=== PATIENT | female | born 1985 | race Caucasian/White ===

== ENCOUNTER 2018-07-20 18:04 | Emergency (ER) | payer BC ==
--- NOTE | 2018-07-20 19:13 | EDM.PDOC ---
ED HPI GENERAL MEDICAL PROBLEM - General Chief Complaint: Chest Pain Stated Complaint: CHEST PAIN AND SOB Time Seen by Provider: 07/20/18 18:43 Source of Information: Reports: Patient, RN Notes Reviewed History Limitations: Reports: No Limitations - History of Present Illness INITIAL COMMENTS - FREE TEXT/NARRATIVE: Patient is a 32-year-old female who presents to the ED today for the evaluation of chest pain or shortness of breath. She notes this started at around noon today, she started having some chest pain that radiated to her left arm and she felt like she needed to pass out. The patient notes a previous history of A heartbeat and anxiety. She states she does not have much for energy at this time and she feels sleepy. She notes that the pain was mostly in to her left shoulder with a dull radiation to her left arm. She states that there was mild feelings of someone sitting on her chest. She states that it is somewhat hard to breathe as well, or to take a deep breath in. She has not felt this type of pain before ever. She notes some mild nausea but no vomiting or diarrhea, shortness of breath, chest discomfort, and fatigue. She has not taken anything for pain medications for this. Middle Chest Pain Score (Numeric/FACES): 7 - Related Data Allergies Allergy/AdvReac Type Severity Reaction Status Date / Time nitrofurantoin Allergy Hives Verified 02/14/18 11:10 [From Macrobid] Home Meds: Home Meds . 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: Reports: Endometriosis, Neurological History: Reports: Other (See Below) Other Neuro History: lumbar puncture for headache Psychiatric History: Reports: Anxiety - Past Surgical History Cardiovascular Surgical History: Reports: Cardiac Ablation Social & Family History - Family History Family Medical History: Noncontributory - Tobacco Use Smoking Status *Q: Never Smoker - Caffeine Use Caffeine Use: Reports: Coffee, Soda, Tea - Recreational Drug Use Recreational Drug Use: No Other Recreational Drug Type: no drugs for years ED ROS GENERAL - Review of Systems Review Of Systems: See Below Constitutional: Reports: Fatigue. Denies: Fever, Chills, Diaphoresis HEENT: Reports: No Symptoms Respiratory: Reports: Shortness of Breath. Denies: Cough Cardiovascular: Reports: Chest Pain (chest discomfort). Denies: Lightheadedness Endocrine: Reports: No Symptoms GI/Abdominal: Reports: Nausea. Denies: Diarrhea, Vomiting : Reports: No Symptoms Musculoskeletal: Reports: Arm Pain (left arm) Skin: Reports: No Symptoms Neurological: Reports: No Symptoms Psychiatric: Reports: Anxiety Hematologic/Lymphatic: Reports: No Symptoms Immunologic: Reports: No Symptoms ED EXAM, GENERAL - Physical Exam Exam: See Below Exam Limited By: No Limitations General Appearance: Alert, WD/WN, No Apparent Distress Eye Exam: Bilateral Eye: EOMI, Normal Inspection, PERRL Nose: Normal Inspection Throat/Mouth: Normal Inspection, Normal Lips, Normal Teeth, Normal Gums, Normal Oropharynx, Normal Voice, No Airway Compromise Head: Atraumatic, Normocephalic Neck: Normal Inspection Respiratory/Chest: No Respiratory Distress, Lungs Clear, Normal Breath Sounds, No Accessory Muscle Use, Other (tenderness to bilateral chest pugh with palpation) Cardiovascular: Normal Peripheral Pulses, Regular Rate, Rhythm, No Edema, No Murmur GI/Abdominal: Normal Bowel Sounds, Soft, Non-Tender Back Exam: Normal Inspection Extremities: Normal Inspection, Non-Tender, Normal Capillary Refill Neurological: Alert, Oriented, Normal Cognition, No Motor/Sensory Deficits Psychiatric: Normal Affect, Normal Mood Skin Exam: Warm, Dry, Intact, Normal Color, No Rash EKG INTERPRETATION EKG Date: 07/20/18 Time: 18:22 Rhythm: NSR Rate (Beats/Min): 82 [place]: Normal P-Wave: Present QRS: Normal ST-T: Normal QT: Prolonged (borderline prolonged) Comparison: NA - No Prior EKG EKG Interpretation Comments: EKG reviewed by Dr. Esquivel, there is no acute changes at this time. Course - Vital Signs Last Recorded V/S: Last Vital Signs Temp 97.5 F 07/20/18 18:25 Pulse 67 07/20/18 18:25 Resp 14 07/20/18 18:25 BP 113/77 07/20/18 18:25 Pulse Ox 100 07/20/18 18:25 - Orders/Labs/Meds Orders: Active Orders 24 hr Category Date Time Status EKG Documentation Completion [RC] STAT Care 07/20/18 18:44 Ordered Chest 2V [CR] Stat Exams 04/05/19 18:44 Ordered Labs: Laboratory Tests 07/20/18 07/20/18 07/20/18 Range/Units 18:25 18:25 18:25 WBC 9.29 (3.98-10.04) K/mm3 RBC 4.86 (3.98-5.22) M/mm3 Hgb 14.3 (11.2-15.7) gm/L Hct 41.5 (34.1-44.9) % MCV 85.4 (79.4-94.8) fl MCH 29.4 (25.6-32.2) pg MCHC 34.5 (32.2-35.5) g/dl RDW Std Deviation 40.7 (36.4-46.3) fL Plt Count 195 (182-369) K/mm3 MPV 10.1 (9.4-12.3) fl Neutrophils % (Manual) 47 (40-60) % Band Neutrophils % 0 (0-10) % Lymphocytes % (Manual) 47 H (20-40) % Atypical Lymphs % 0 % Monocytes % (Manual) 4 (2-10) % Eosinophils % (Manual) 2 (0.7-5.8) % Basophils % (Manual) 0 L (0.1-1.2) Platelet Estimate Adequate RBC Morph Comment Normal D-Dimer, Quantitative 0.50 (0.19-0.50) mg/L Sodium 139 (136-145) mEq/L Potassium 3.1 L (3.5-5.1) mEq/L Chloride 103 (98-107) mEq/L Carbon Dioxide 23 (21-32) mEq/L Anion Gap 16.1 H (5-15) BUN 15 (7-18) mg/dL Creatinine 1.0 (0.55-1.02) mg/dL Est Cr Clr Drug Dosing 74.91 mL/min Estimated GFR (MDRD) > 60 (>60) mL/min BUN/Creatinine Ratio 15.0 (14-18) Glucose 98 (74-106) mg/dL Calcium 9.6 (8.5-10.1) mg/dL Total Bilirubin 0.5 (0.2-1.0) mg/dL AST 56 H (15-37) U/L ALT 66 H (14-59) U/L Alkaline Phosphatase 81 (46-116) U/L Troponin I < 0.017 (0.00-0.056) ng/mL Total Protein 7.9 (6.4-8.2) g/dl Albumin 4.2 (3.4-5.0) g/dl Globulin 3.7 gm/dL Albumin/Globulin Ratio 1.1 (1-2) - Re-Assessments/Exams Free Text/Narrative Re-Assessment/Exam: 07/20/18 19:14 Patient presents to the ED for evaluation of chest pain. I did order EKG, CBC, CMP, troponin, d-dimer, chest x-ray for further evaluation of her symptoms. She is tender with palpation to her bilateral chest wall which is somewhat suggestive of costochondritis in nature, this would explain the pain into her left arm as well. The patient was nauseous at time of initial presentation, however she has declined any medications for nausea this time. 07/20/18 20:31 Patient's labs have returned and do not demonstrate any acute abnormalities as to what would be causing her chest pain I did explain this to the patient and told her this may be due to a small anxiety attack. I recommended that she follow up with a primary care provider early next week for further evaluation of these symptoms. Departure - Departure Time of Disposition: 20:32 Disposition: Home, Self-Care 01 Condition: Fair Clinical Impression: Atypical chest pain - Discharge Information *PRESCRIPTION DRUG MONITORING PROGRAM REVIEWED*: No *COPY OF PRESCRIPTION DRUG MONITORING REPORT IN PATIENT OLIVIA: No Instructions: Chest Wall Pain, [id number], Nonspecific Chest Pain, Easy-to- Read Referrals: PCP,None [Primary Care Provider] - Forms: ED Department Discharge Additional Instructions: You have been evaluated in the ED tonight for your chest pain. Her EKG, and other labs did not demonstrate any acute abnormalities that would be causing her chest pain. This may be likely due to anxiety in nature. Recommend that you follow up with primary care provider of your choosing please call [phone] Monday as early as possible to set up an appointment with a provider. Please increase your fluid intake over the weekend, if you are experiencing increased nausea you may stick to a clear liquid diet and advance to bland as tolerated, this does include bananas, rice, applesauce, dry toast. Please return to the ED if your symptoms change or worsen. - My Orders Last 24 Hours: My Active Orders 07/20/18 18:44 EKG Documentation Completion [RC] STAT Chest 2V [CR] Stat - Assessment/Plan Last 24 Hours: My Active Orders 07/20/18 18:44 EKG Documentation Completion [RC] STAT Chest 2V [CR] Stat
--- NOTE | 2018-07-21 10:59 | CR ---
Chest: Two views of the chest were obtained. Comparison: Prior chest x-ray of 02/09/18. Heart size and mediastinum are normal. Lungs are clear. Old healed left clavicle fracture is noted. No acute osseous abnormality is appreciated. Impression: 1. Nothing acute is seen on two-view chest x-ray. Diagnostic code #2
== END 2018-07-20 20:43 | disposition home or self-care (01) ==
LOC: JD.ED 18:04
DX: R07.89 Other chest pain (principal); Z88.8 Allergy status to other drugs, medicaments and biological substances
CPT/HCPCS: 36415; 71046; 71046-26; 80053; 84484; 85007; 85027; 85379; 93005; 93010; 99285; 99285-25

== ENCOUNTER 2018-12-22 14:06 | Emergency (ER) | payer BC ==
--- NOTE | 2018-12-22 14:44 | EDM.PDOC ---
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 Patient reports 16 days ago she had intercourse with her and since then she has had spotting. She reports pain to the right side of her pelvis as well. She has been seen her internal medicine doctor, Dr. Mccollum. She had a CT and MRI of her pelvis as well as labs and a urine. No abnormal has been identified thus far. She did follow up with Dr. Montes and had a Pap done recently. She is supposed to see Dr. Montes again on for follow-up. She states that tonight she started her menstrual cycle. She has soaked through 2 pads in 2 hours. States this is bright red blood with clots. She reports feeling lightheaded, dizzy, nauseated and having headaches. She denies any syncope. She states that she is fatigued and has no energy. She is not on any medication at this time. Reports past medical history of endometriosis and interstitial cystitis. PCP is Dr. Mccollum. first officer and flight instructor is Dr. Montes. Right Abdominal Pain Score (Numeric/FACES): 5 - Related Data Allergies Allergy/AdvReac Type Severity Reaction Status Date / Time nitrofurantoin Allergy Hives Verified 12/22/18 14:15 [From Macrobid] Home Meds: Home Meds . 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: Reports: Endometriosis, Neurological History: Reports: Other (See Below) Other Neuro History: lumbar puncture for headache Psychiatric History: Reports: Anxiety - Past Surgical History Cardiovascular Surgical History: Reports: Cardiac Ablation Social & Family History - Family History Family Medical History: Noncontributory - Tobacco Use Smoking Status *Q: Never Smoker Second Hand Smoke Exposure: No - Caffeine Use Caffeine Use: Reports: Coffee - Recreational Drug Use Recreational Drug Use: No ED ROS GENERAL - Review of Systems Review Of Systems: See Below Constitutional: Reports: Weakness, Fatigue GI/Abdominal: Reports: Nausea. Denies: Vomiting : Reports: Pain (right sided pelvic) Neurological: Reports: Dizziness, Headache. Denies: Syncope ED EXAM, RENAL/ - Physical Exam Exam: See Below Exam Limited By: No Limitations General Appearance: Alert, WD/WN, No Apparent Distress Nose: Normal Inspection Throat/Mouth: Normal Inspection, Normal Lips, Normal Voice, No Airway Compromise Respiratory/Chest: No Respiratory Distress, Lungs Clear, Normal Breath Sounds Cardiovascular: Normal Peripheral Pulses, Regular Rate, Rhythm, No Murmur GI/Abdominal: Normal Bowel Sounds, Soft, Non-Tender (Female) Exam: Normal Speculum Exam, Vaginal Bleeding (heavy, not hemorrhaging) Neurological: Alert, Oriented, Normal Cognition Psychiatric: Normal Affect, Normal Mood Skin Exam: Warm, Dry, Normal Color Course - Vital Signs Last Recorded V/S: Last Vital Signs Temp 97.5 F 12/22/18 14:14 Pulse 84 12/22/18 14:14 Resp 14 12/22/18 14:14 BP 120/76 12/22/18 14:14 Pulse Ox 100 12/22/18 14:14 Orthostatic Blood Pressure [ 99/72 Standing] Orthostatic Blood Pressure [ 93/67 Supine] - Orders/Labs/Meds Orders: Active Orders 24 hr Category Date Time Status Orthostatic Vital Signs [RC] ASDIRECTED Care 12/22/18 14:31 Active Pelvic Exam, Set Up [RC] ASDIRECTED Care 12/22/18 14:43 Active Labs: Laboratory Tests 12/22/18 12/22/18 12/22/18 Range/Units 14:53 14:53 14:53 WBC 6.90 (3.98-10.04) K/mm3 RBC 4.59 (3.98-5.22) M/mm3 Hgb 13.2 (11.2-15.7) gm/L Hct 39.6 (34.1-44.9) % MCV 86.3 (79.4-94.8) fl MCH 28.8 (25.6-32.2) pg MCHC 33.3 (32.2-35.5) g/dl RDW Std Deviation 41.0 (36.4-46.3) fL Plt Count 221 (182-369) K/mm3 MPV 10.1 (9.4-12.3) fl Neut % (Auto) 68.5 (34.0-71.1) % Lymph % (Auto) 22.9 (19.3-51.7) % [place] % (Auto) 7.2 (4.7-12.5) % Eos % (Auto) 1.0 (0.7-5.8) Baso % (Auto) 0.3 (0.1-1.2) % Neut # (Auto) 4.72 (1.56-6.13) K/mm3 Lymph # (Auto) 1.58 (1.18-3.74) K/mm3 [place] # (Auto) 0.50 H (0.24-0.36) K/mm3 Eos # (Auto) 0.07 (0.04-0.36) K/mm3 Baso # (Auto) 0.02 (0.01-0.08) K/mm3 Sodium 139 (136-145) mEq/L Potassium 4.1 (3.5-5.1) mEq/L Chloride 106 (98-107) mEq/L Carbon Dioxide 27 (21-32) mEq/L Anion Gap 10.1 (5-15) BUN 12 (7-18) mg/dL Creatinine 0.8 (0.55-1.02) mg/dL Est Cr Clr Drug Dosing 92.76 mL/min Estimated GFR (MDRD) > 60 (>60) mL/min BUN/Creatinine Ratio 15.0 (14-18) Glucose 88 (74-106) mg/dL Calcium 8.9 (8.5-10.1) mg/dL Total Bilirubin 0.2 (0.2-1.0) mg/dL AST 22 (15-37) U/L ALT 30 (14-59) U/L Alkaline Phosphatase 67 (46-116) U/L Total Protein 7.5 (6.4-8.2) g/dl Albumin 3.6 (3.4-5.0) g/dl Globulin 3.9 gm/dL Albumin/Globulin Ratio 0.9 L (1-2) HCG, Qual Negative (NEGATIVE) Urine Color (Yellow) Urine Appearance (Clear) Urine pH (5.0-8.0) Ur Specific [place] (1.005-1.030) Urine Protein (Negative) Urine Glucose (UA) (Negative) Urine Ketones (Negative) Urine Occult Blood (Negative) Urine Nitrite (Negative) Urine Bilirubin (Negative) Urine Urobilinogen (0.2-1.0) Ur Leukocyte Esterase (Negative) Urine RBC (0-5) /hpf Urine WBC (0-5) /hpf Ur Epithelial Cells (0-5) /hpf Urine Bacteria (FEW) /hpf Urine Mucus (FEW) /hpf 12/22/18 Range/Units 15:05 WBC (3.98-10.04) K/mm3 RBC (3.98-5.22) M/mm3 Hgb (11.2-15.7) gm/L Hct (34.1-44.9) % MCV (79.4-94.8) fl MCH (25.6-32.2) pg MCHC (32.2-35.5) g/dl RDW Std Deviation (36.4-46.3) fL Plt Count (182-369) K/mm3 MPV (9.4-12.3) fl Neut % (Auto) (34.0-71.1) % Lymph % (Auto) (19.3-51.7) % [place] % (Auto) (4.7-12.5) % Eos % (Auto) (0.7-5.8) Baso % (Auto) (0.1-1.2) % Neut # (Auto) (1.56-6.13) K/mm3 Lymph # (Auto) (1.18-3.74) K/mm3 [place] # (Auto) (0.24-0.36) K/mm3 Eos # (Auto) (0.04-0.36) K/mm3 Baso # (Auto) (0.01-0.08) K/mm3 Sodium (136-145) mEq/L Potassium (3.5-5.1) mEq/L Chloride (98-107) mEq/L Carbon Dioxide (21-32) mEq/L Anion Gap (5-15) BUN (7-18) mg/dL Creatinine (0.55-1.02) mg/dL Est Cr Clr Drug Dosing mL/min Estimated GFR (MDRD) (>60) mL/min BUN/Creatinine Ratio (14-18) Glucose (74-106) mg/dL Calcium (8.5-10.1) mg/dL Total Bilirubin (0.2-1.0) mg/dL AST (15-37) U/L ALT (14-59) U/L Alkaline Phosphatase (46-116) U/L Total Protein (6.4-8.2) g/dl Albumin (3.4-5.0) g/dl Globulin gm/dL Albumin/Globulin Ratio (1-2) HCG, Qual (NEGATIVE) Urine Color Yellow (Yellow) Urine Appearance Clear (Clear) Urine pH 6.0 (5.0-8.0) Ur Specific [place] 1.025 (1.005-1.030) Urine Protein Negative (Negative) Urine Glucose (UA) Negative (Negative) Urine Ketones Negative (Negative) Urine Occult Blood 1+ H (Negative) Urine Nitrite Negative (Negative) Urine Bilirubin Negative (Negative) Urine Urobilinogen 0.2 (0.2-1.0) Ur Leukocyte Esterase Negative (Negative) Urine RBC 0-5 (0-5) /hpf Urine WBC Not seen (0-5) /hpf Ur Epithelial Cells 5-10 H (0-5) /hpf Urine Bacteria Rare (FEW) /hpf Urine Mucus Moderate H (FEW) /hpf Meds: Medications Discontinued Medications Generic Name Dose Route Start Last Admin Trade Name Freq PRN Reason Stop Dose Admin Ketorolac Tromethamine 60 mg 12/22/18 15:14 12/22/18 15:30 Toradol IM 12/22/18 15:15 60 mg ONETIME ONE Administration Ondansetron HCl 4 mg 12/22/18 15:14 12/22/18 15:30 Zofran Odt PO 12/22/18 15:15 4 mg ONETIME ONE Administration - Re-Assessments/Exams Free Text/Narrative Re-Assessment/Exam: 12/22/18 16:00 Reviewed the labs with the patient. She is not orthostatic. On exam she is bleeding heavily but is not hemorrhaging blood. Discussed with Dr. Montes, ob electronic engineering draftsperson. She will see her as planned. No need for additional intervention tonight. She thought that she was the patient who had an abnormal Pap and would need a possibly which is what they will do in the clinic on . Discharge instructions as documented. Departure - Departure Time of Disposition: 16:06 Disposition: Home, Self-Care 01 Condition: Good Clinical Impression: Pelvic pain, Menorrhagia - Discharge Information *PRESCRIPTION DRUG MONITORING PROGRAM REVIEWED*: No *COPY OF PRESCRIPTION DRUG MONITORING REPORT IN PATIENT OLIVIA: No Instructions: Menorrhagia, [id number] Referrals: Dee Mccollum MD [Primary Care Provider] - Dot Montes MD [Physician] - Forms: ED Department Discharge Additional Instructions: go home and rest. Make sure you are drinking plenty of fluids. [id number] Tylenol or Motrin as needed for discomfort. Follow up with your OB as planned. Please return to the ER if your symptoms change or worsen. - My Orders Last 24 Hours: My Active Orders 12/22/18 14:31 Orthostatic Vital Signs [RC] ASDIRECTED 12/22/18 14:43 Pelvic Exam, Set Up [RC] ASDIRECTED - Assessment/Plan Last 24 Hours: My Active Orders 12/22/18 14:31 Orthostatic Vital Signs [RC] ASDIRECTED 12/22/18 14:43 Pelvic Exam, Set Up [RC] ASDIRECTED
[2018-12-22] MEDS ORDERED: Ketorolac 60 MG/2 ML SDV IM ONE (15:14)
[2018-12-22] MEDS ORDERED: Ondansetron 4 MG Tab.DIS PO ONE (15:14)
== END 2018-12-22 16:18 | disposition home or self-care (01) ==
LOC: JD.ED 14:06
DX: N92.0 Excessive and frequent menstruation with regular cycle (principal); Z88.8 Allergy status to other drugs, medicaments and biological substances
CPT/HCPCS: 36415; 80053; 81001; 84703; 85025; 96372; 99284; A9270; J1885; 99283